=== PATIENT | male | born 1960 | race Caucasian/White ===

== ENCOUNTER → 2016-08-20 | Outpatient (CLI) | payer BC ==
--- NOTE | 2016-08-21 08:05 | XR ---
EXAMINATION TYPE: XR cervical spine comp DATE OF EXAM: 08/20/2016 4:57 PM CLINICAL HISTORY: pain COMPARISON: NONE TECHNIQUE: Frontal, lateral, oblique, swimmers, and open mouth view of the cervical spine are obtaine d. FINDINGS: The cervical spine is visualized in its entirety from C1 thru the top of T1 level. It is s atisfactory in alignment without evidence of acute fracture or dislocation. The pre-vertebral soft t issue appears within normal limits. Degenerative narrowing and spondylosis at C4-5, C5-6, and C6-7. T he C1-C2 articulation is unremarkable on the open mouth view. The oblique images are within normal l imits. IMPRESSION: No acute fracture or dislocation is seen in the cervical spine.ICD 10 NO FRACTURE, INITI AL EVALUATION
== END | disposition home or self-care (01) ==
LOC: RADXRYALE 16:27
PROVIDERS: ATTEND Family Medicine
DX: M54.2 Cervicalgia (principal); G50.0 Trigeminal neuralgia
CPT/HCPCS: 72050

== ENCOUNTER → 2018-06-18 | Outpatient (CLI) | payer BC ==
[2018-06-19 08:42] VITALS: BMI 47.2
== END | disposition home or self-care (01) ==
LOC: LABWHC1 15:01
PROVIDERS: ATTEND Family Medicine
DX: E66.01 Morbid (severe) obesity due to excess calories (principal)
CPT/HCPCS: 97804

== ENCOUNTER → 2018-07-09 | Outpatient (CLI) | payer BC ==
[2018-07-09 15:32] VITALS: BP 125/77; PULSE 68; RESP 16; TEMP 98.1; BMI 49.3
--- NOTE | 2018-07-09 16:33 | P.HPBAR ---
Bariatric H&P - History & Physicial H&P Date: 07/09/18 History & Physicial: Visit/CC: initial visit Patient initial contact: Initial weight: 147.077 kg Initial weight in pounds: 324.25 Height: 5 ft 8 in Initial BMI: 49.3 Last weight: Current weight: 147.077 kg Current weight in pounds: 324.25 Current BMI: 49.3 Jerome body weight (based on NIH guidelines): 69.853 kg Excess body weight loss: 0.0% The patient is a 57 year-old M who presents for Bariatric Assessment. Patient possessed today for a new patient evaluation in the bariatric clinic. Patient interested in sleeve gastrectomy. Patient went to a seminar 2 months ago. He is actually here with his today. They're both interested in sleeve gastrectomy. Patient has a history of hypertension, hypercholesterolemia, coronary artery disease, hyperlipidemia, chronic knee pain, GERD symptoms. No history of sleep apnea. Patient currently taking proton pump inhibitors for GERD symptoms. No history of DVT or dysphagia. Patient had a recent cardiology workup that was negative. Review of Systems The patient denies any acute changes in vision or hearing, no dysphagia or odynophagia, no chest pain or shortness of breath, no dysuria or hematuria, no headache, no runny nose, no rectal bleeding or melena, no unexplained weight loss Past Medical History Past Medical History: Coronary Artery Disease (CAD), Chest Pain / Angina, Hyperlipidemia, Hypertension, Myocardial Infarction ([place]), Osteoarthritis (OA) Additional Past Medical History / Comment(s): OA in bilateral knees. Last Myocardial Infarction Date:: 06/2009 History of Any Multi-Drug Resistant Organisms: None Reported Past Surgical History: Coronary Bypass/CABG Additional Past Surgical History / Comment(s): 2009 cardiac cath and emergent CABG X2 vessels, colonoscopy Past Anesthesia/Blood Transfusion Reactions: No Reported Reaction Past Psychological History: No Psychological Hx Reported Additional Psychological History / Comment(s): Pt resides with his spouse. He is independent. He drives. Smoking Status: Former smoker Past Alcohol Use History: Rare Additional Past Alcohol Use History / Comment(s): Former CIGAR SMOKER. Quit in 2010 Past Drug Use History: None Reported - Past Family History Father Family Medical History: Coronary Artery Disease (CAD) Additional Family Medical History / Comment(s): Father at age 78 yrs from CAD. Mother Family Medical History: Congestive Heart Failure (CHF), Coronary Artery Disease (CAD) Additional Family Medical History / Comment(s): Mother at age 70 yrs of CAD/CHF Surgical - Exam Vital Signs Temp Pulse Resp BP 98.1 F 68 16 125/77 07/09/18 15:28 07/09/18 15:28 07/09/18 15:28 07/09/18 15:28 Physical exam: General: Well-developed, well-nourished HEENT: Normocephalic, sclerae nonicteric Abdomen: Nontender, nondistended Extremities: No edema Neuro: Alert and oriented Bariatric Assessment & Plan (1) Morbid obesity Narrative/Plan: Surgical options reviewed with the patient and his in detail. Patient remains interested in sleeve gastrectomy. Patient will require preoperative upper endoscopy. Will ask for cardiac clearance as well. Patient currently has 4 months left of his supervised weight loss visits. Patient will follow up back in the clinic after upper endoscopy performed. Status: Acute Bariatric Checklist Checklist: Plan: Checklist: EGD: 1. Hiatal hernia: 2. H. Pylori: HgbA1c: Vitamin D: Smoking: Former smoker Primary care physician referral: waqar Psychiatry clearance: Cardiology clearance: Sleep study: Diet journal: VTE risk score: VTE risk level: Rehab needs at discharge:
[2018-07-09 17:23] LABS: HCT 46.6 % (39.0-53.0); HGB 15.8 gm/dL (13.0-17.5); MCH 31.2 pg (25.0-35.0); MCHC 33.9 g/dL (31.0-37.0); MCV 92.2 fL (80.0-100.0); Mean Platelet Volume 7.8; Platelet Count 133 k/uL (150-450); RBC 5.05 m/uL (4.30-5.90); RDW 13.2 % (11.5-15.5); WBC 4.5 k/uL (3.8-10.6)
[2018-07-09 22:59] LABS: Vitamin D 25 Hydroxy 35.7 ng/mL (30.0-100.0)
[2018-07-09 23:01] LABS: Albumin 4.7 g/dL (3.80-4.90); Albumin/Globulin Ratio 2.47 (1.60-3.17); Anion Gap 9.7 mmol/L (4.00-12.00); Calcium 9.9 mg/dL (8.7-10.3); Carbon Dioxide 27.3 mmol/L (21.6-31.8); Globulin 1.9 g/dL (1.6-3.3); Potassium 4.4 mmol/L (3.5-5.5); Total Bilirubin 1.3 mg/dL (0.2-1.2); Total Protein 6.6 g/dL (6.2-8.2)
[2018-07-09 23:09] LABS: Folate, Serum 20.7 ng/mL
[2018-07-10 01:41] LABS: Hemoglobin A1C 5.7 % (4.0-6.0)
== END ==
LOC: BARWHC3 14:56
PROVIDERS: ATTEND Surgery
DX: E66.01 Morbid (severe) obesity due to excess calories (principal); E89.1 Postprocedural hypoinsulinemia; D50.8 Other iron deficiency anemias; E55.9 Vitamin D deficiency, unspecified; Z68.42 Body mass index [BMI] 45.0-49.9, adult; Z87.891 Personal history of nicotine dependence
CPT/HCPCS: 80053; 82306; 82607; 82746; 83036; 84425; 85027; 93005; 99211

== ENCOUNTER → 2018-08-14 | Day surgery (SDC) | payer BC ==
[2018-08-12 10:00] VITALS: BMI 49.2
[~2018-08-14] MED LIST: LACTATED RINGERS 1,000 ML IV SCH; LIDOCAINE 1% 20 ML VIAL (10MG/ML) FOR IV START INTRADERMA ONE; PROPOFOL 10 MG/ML 20 ML VIAL IV ONE
[2018-08-14 11:31] VITALS: PULSE 57; RESP 16; TEMP 98.7
--- NOTE | 2018-08-14 12:22 | P.GSHP ---
History of Present Illness H&P Date: 08/14/18 Chief Complaint: gerd Patient here today for upper endoscopy. Patient recently seen in the bariatric center for sleep gastrectomy. Patient has complaints of mild reflux. No dysphagia. Patient takes Mobic daily. Past Medical History Past Medical History: Coronary Artery Disease (CAD), Chest Pain / Angina, Hyperlipidemia, Hypertension, Myocardial Infarction ([place]), Osteoarthritis (OA) Additional Past Medical History / Comment(s): OA in bilateral knees. Last Myocardial Infarction Date:: 06/2009 History of Any Multi-Drug Resistant Organisms: None Reported Past Surgical History: Coronary Bypass/CABG Additional Past Surgical History / Comment(s): 2009 cardiac cath and emergent CABG X2 vessels, colonoscopy Past Anesthesia/Blood Transfusion Reactions: No Reported Reaction Additional Past Anesthesia/Blood Transfusion Reaction / Comment(s): no hx blood transfusion Smoking Status: Former smoker - Past Family History Father Family Medical History: Coronary Artery Disease (CAD) Additional Family Medical History / Comment(s): Father at age 78 yrs from CAD. Mother Family Medical History: Congestive Heart Failure (CHF), Coronary Artery Disease (CAD) Additional Family Medical History / Comment(s): Mother at age 70 yrs of CAD/CHF Medications and Allergies Home Medications Medication Instructions Recorded Confirmed Type Aspirin 162 mg PO HS 03/17/14 08/14/18 History Atorvastatin [Lipitor] 40 mg PO HS 03/17/14 08/14/18 History Lisinopril [Zestril] 20 mg PO BID 03/17/14 08/14/18 History Meloxicam [Mobic] 7.5 mg PO BID 03/17/14 08/14/18 History Metoprolol Tartrate [Lopressor] 50 mg PO BID 03/17/14 08/14/18 History Multivitamin [Men's Multi-Vitamin] 1 tab PO DAILY 03/17/14 08/14/18 History Niacin [Niacin ER] 500 mg PO HS 03/17/14 08/14/18 History amLODIPine [Norvasc] 5 mg PO QAM 03/17/14 08/14/18 History Pantoprazole Sodium [Protonix] 40 mg PO AC-BRKFST 30 Days 10/24/15 08/14/18 Rx tablet. Allergies Allergy/AdvReac Type Severity Reaction Status Date / Time No Known Allergies Allergy Verified 08/12/18 09:54 Surgical - Exam Vital Signs Temp Pulse Resp BP Pulse Ox 98.7 F 57 L 16 133/65 97 08/14/18 11:29 08/14/18 11:29 08/14/18 11:29 08/14/18 11:29 08/14/18 11:29 Physical exam: General: Well-developed, well-nourished HEENT: Normocephalic, sclerae nonicteric Abdomen: Nontender, nondistended Extremities: No edema Neuro: Alert and oriented Assessment and Plan (1) GERD (gastroesophageal reflux disease) Narrative/Plan: Will proceed with upper endoscopy at this time. Current Visit: Yes Status: Acute Code(s): K21.9 - GASTRO-ESOPHAGEAL REFLUX DISEASE WITHOUT ESOPHAGITIS SNOMED Code(s): 525552090 (2) Morbid obesity Current Visit: No Status: Acute Code(s): E66.01 - MORBID (SEVERE) OBESITY DUE TO EXCESS CALORIES SNOMED Code(s): 302607191
--- NOTE | 2018-08-14 12:29 | P.PCN ---
Date of Procedure: 08/14/18 Procedure(s) Performed: Preoperative Dx: GERD, presurgical Postoperative Dx: Gastritis, hiatal hernia Procedure: EGD with Bx Anesthesia: Sedation Endoscopist: Dr. Agosto Specimens: Antrum Endoscopic Procedure: The patient was on the endoscopy table in the left decubitus position. The Olympus gastroscope was inserted into the oropharynx and passed under direct visualization to the region of the third portion of the duodenum. From that point the scope was slowly withdrawn inspecting all surfaces carefully. There were no neoplastic inflammatory or polypoid lesions throughout the duodenum. The pylorus was widely patent. The stomach was carefully inspected. There was mild gastritis present. A biopsy of the antrum took place to rule out H. pylori. Retroflexion revealed a small hiatal hernia. GE junction was present 2 cm above the diaphragmatic hiatus. The esophagus was then carefully examined. There were no neoplastic inflammatory or polypoid lesions throughout the visualized esophagus. The patient was then taken to the recovery room in stable condition per anesthesia guidelines. Recommendations: Continue as needed antiacids. Will require hiatal herniorrhaphy with sleeve gastrectomy.
[2018-08-14 12:59] VITALS: BP 117/65
== END ==
LOC: ORWHC2ENDO 11:13
PROVIDERS: ATTEND Surgery
DX: Z01.818 Encounter for other preprocedural examination (principal); K29.50 Unspecified chronic gastritis without bleeding; K44.9 Diaphragmatic hernia without obstruction or gangrene; K21.9 Gastro-esophageal reflux disease without esophagitis; E66.01 Morbid (severe) obesity due to excess calories; Z68.42 Body mass index [BMI] 45.0-49.9, adult; I25.119 Atherosclerotic heart disease of native coronary artery with unspecified angina pectoris; I10 Essential (primary) hypertension; Z87.891 Personal history of nicotine dependence; E78.5 Hyperlipidemia, unspecified; I25.2 Old myocardial infarction; M17.0 Bilateral primary osteoarthritis of knee; Z95.1 Presence of aortocoronary bypass graft; Z82.49 Family history of ischemic heart disease and other diseases of the circulatory system; Z79.1 Long term (current) use of non-steroidal anti-inflammatories (NSAID); Z79.82 Long term (current) use of aspirin; Z79.899 Other long term (current) drug therapy
CPT/HCPCS: 88305; 43239; J2704

== ENCOUNTER → 2018-11-02 | Outpatient (CLI) | payer BC ==
[2018-11-02 12:52] VITALS: BMI 51.0
== END ==
LOC: BARWHC3 08:38
PROVIDERS: ATTEND Surgery
DX: E66.01 Morbid (severe) obesity due to excess calories (principal); Z68.43 Body mass index [BMI] 50.0-59.9, adult
CPT/HCPCS: 97804

== ENCOUNTER → 2018-11-17 | Outpatient (CLI) | payer BC ==
[2018-11-17 11:37] VITALS: BP 150/92; PULSE 51; RESP 16; TEMP 98.6; BMI 51.3
--- NOTE | 2018-11-17 11:49 | P.BASOAP ---
Subjective Progress Note Date: 11/17/18 Principal diagnosis: Morbid obesity Patient returns today for surgical follow-up. Last seen in July. Had an upper endoscopy performed showing a small hiatal hernia and gastritis. Doing well otherwise. No changes to his medical history. Remains interested in sleeve gastrectomy. Objective - Vital Signs Vital signs: Vital Signs Temp 98.6 F 11/17/18 11:33 Pulse 51 L 11/17/18 11:33 Resp 16 11/17/18 11:33 BP 150/92 11/17/18 11:33 Pulse Ox Intake & Output 11/16/18 11/17/18 11/17/18 18:59 06:59 18:59 Weight 153.314 kg - Exam Abdomen: Soft, nontender, nondistended Assessment/Plan (1) Morbid obesity Narrative/Plan: The patient his and I reviewed the surgical consent form. Risks and benefits of the sleeve gastrectomy reviewed in detail. All questions answered. We'll schedule for sleeve gastrectomy in November/December. Plan: Date: 11/17/18 Initial Weight: 147.077 kg Initial BMI: 49.3 Current Weight: 153.314 kg Current BMI: 51.3 Type of Surgery: Total Volume in Band: Previous Volume: Volume Removed: Volume Added: Band Size:
== END | disposition home or self-care (01) ==
LOC: BARWHC3 10:50
PROVIDERS: ATTEND Surgery
DX: E66.01 Morbid (severe) obesity due to excess calories (principal); Z68.43 Body mass index [BMI] 50.0-59.9, adult
CPT/HCPCS: 99211

== ENCOUNTER → 2019-01-12 | Outpatient (CLI) | payer BC ==
[2019-01-12 16:00] LABS: Basophils # (A) 0.1 k/uL (0-0.2); Basophils % (A) 1 %; Eosinophils # (A) 0.1 k/uL (0-0.7); Eosinophils % (A) 2 %; HCT 48.6 % (39.0-53.0); Lymphocytes # (A) 1.1 k/uL (1.0-4.8); Lymphocytes % (A) 20 %; MCH 31.7 pg (25.0-35.0); MCHC 34.9 g/dL (31.0-37.0); MCV 90.9 fL (80.0-100.0); Mean Platelet Volume 9.1; Monocytes # (A) 0.4 k/uL (0-1.0); Monocytes % (A) 8 %; Neutrophils # (A) 3.6 k/uL (1.3-7.7); Neutrophils % (A) 66 %; Platelet Count 109 k/uL (150-450); RBC 5.35 m/uL (4.30-5.90); RDW 13.2 % (11.5-15.5); WBC 5.5 k/uL (3.8-10.6)
[2019-01-12 16:09] LABS: Albumin 5.1 g/dL (3.5-5.0); Calcium 10.2 mg/dL (8.4-10.2); Total Bilirubin 1.6 mg/dL (0.2-1.3)
== END | disposition home or self-care (01) ==
LOC: LABPAT 15:33
PROVIDERS: ATTEND Surgery
DX: Z01.812 Encounter for preprocedural laboratory examination (principal)
CPT/HCPCS: 36415; 80053; 85025

== ENCOUNTER 2019-01-18 10:01 | Inpatient (IN) | payer BC ==
--- NOTE | 2019-01-18 09:38 | P.GSHP ---
History of Present Illness H&P Date: 01/18/19 Chief Complaint: Morbid obesity Patient is a 57-year-old male first seen in June of this year for preoperative evaluation for bariatric surgery. Patient remains interested in sleeve gastrectomy. His recently underwent sleeve gastrectomy and is doing well postoperatively. Patient has a history of hypertension hypercholesterolemia coronary artery disease hyperlipidemia chronic knee pain and GERD symptoms. Denies history of DVT or dysphagia. Does take antiacids for reflux. Recent EGD shows mild gastritis and a small hiatal hernia. Past Medical History Past Medical History: Coronary Artery Disease (CAD), Chest Pain / Angina, Hyperlipidemia, Hypertension, Myocardial Infarction ([place]), Osteoarthritis (OA) Additional Past Medical History / Comment(s): OA in bilateral knees. Last Myocardial Infarction Date:: 06/2009 History of Any Multi-Drug Resistant Organisms: None Reported Past Surgical History: Coronary Bypass/CABG Additional Past Surgical History / Comment(s): 2009 cardiac cath and emergent CABG X2 vessels, colonoscopy Past Anesthesia/Blood Transfusion Reactions: No Reported Reaction Additional Past Anesthesia/Blood Transfusion Reaction / Comment(s): no hx blood transfusion Smoking Status: Former smoker - Past Family History Father Family Medical History: Coronary Artery Disease (CAD) Additional Family Medical History / Comment(s): Father at age 78 yrs from CAD. Mother Family Medical History: Congestive Heart Failure (CHF), Coronary Artery Disease (CAD), Diabetes Mellitus Additional Family Medical History / Comment(s): Mother at age 70 yrs of CAD/CHF Medications and Allergies Home Medications Medication Instructions Recorded Confirmed Type Aspirin 162 mg PO HS 03/17/14 01/12/19 History Atorvastatin [Lipitor] 40 mg PO HS 03/17/14 01/12/19 History Lisinopril [Zestril] 20 mg PO BID 03/17/14 01/12/19 History Meloxicam [Mobic] 7.5 mg PO BID 03/17/14 01/12/19 History Metoprolol Tartrate [Lopressor] 50 mg PO BID 03/17/14 01/12/19 History Multivitamin [Men's Multi-Vitamin] 1 tab PO DAILY 03/17/14 01/12/19 History Niacin [Niacin ER] 500 mg PO HS 03/17/14 01/12/19 History amLODIPine [Norvasc] 5 mg PO QAM 03/17/14 01/12/19 History Pantoprazole Sodium [Protonix] 40 mg PO AC-BRKFST 30 Days 10/24/15 01/12/19 Rx tablet. Fluticasone Nasal [place] [Flonase 2 spr EA NOSTRIL DAILY 11/02/18 01/12/19 History Nasal [place]] Loratadine [Claritin] 10 mg PO DAILY 11/02/18 01/12/19 History Magnesium Oxide [Mag-Ox] 250 mg PO QAM 11/02/18 01/12/19 History Allergies Allergy/AdvReac Type Severity Reaction Status Date / Time No Known Allergies Allergy Verified 01/12/19 13:53 Surgical - Exam Physical exam: General: Well-developed, well-nourished HEENT: Normocephalic, sclerae nonicteric Abdomen: Nontender, nondistended Extremities: No edema Neuro: Alert and oriented Assessment and Plan (1) Morbid obesity Narrative/Plan: Will proceed with sleeve gastrectomy and hiatal hernia repair at this time. The risks of bleeding, infection, stenosis, stricture, leak, abscess, fistula formation, peritonitis, poor weight loss, reflux, vomiting, conversion to an open procedure, aborting sleeve gastrectomy, HI, PE, DVT, and were discussed. The patient understands and wishes to proceed. Status: Acute Code(s): E66.01 - MORBID (SEVERE) OBESITY DUE TO EXCESS CALORIES SNOMED Code(s): 621586936
[~2019-01-18 10:01] MED LIST changes: +DEXAMETHASONE SOD PHOSPHATE 10 MG/ML 1 ML VIAL IV ONE; +ENOXAPARIN 40 MG/0.4 ML SYRINGE SQ ONE; -LACTATED RINGERS 1,000 ML IV SCH; -LIDOCAINE 1% 20 ML VIAL (10MG/ML) FOR IV START INTRADERMA ONE; +LIDOCAINE 1% 20 ML VIAL (10MG/ML) FOR IV START INTRADERMA PRN; +MIDAZOLAM 2 MG/2 ML VIAL IV PRN; -PROPOFOL 10 MG/ML 20 ML VIAL IV ONE; +ceFAZolin 3 GM in SODIUM CHLORIDE 0.9% 100 ML IVPB ONE
[2019-01-18] MEDS: LACTATED RINGERS 1,000 ML IV SCH ×3 (10:57→16:46)
[2019-01-18] MEDS ORDERED: DEXAMETHASONE SOD PHOS (MDV) 100 MG/10 ML VIAL IV ONE (11:12)
[2019-01-18] MEDS: ONDANSETRON 4 MG/2 ML VIAL IVP ONE ×2 (11:12→15:27)
[2019-01-18] MEDS ORDERED: PROPOFOL 10 MG/ML 20 ML VIAL IV ONE (12:22)
[2019-01-18] MEDS ORDERED: fentaNYL (PF) 50 MCG/ML 2 ML AMP ONE (12:22)
[2019-01-18] MEDS ORDERED: LIDOCAINE 1% INJ 10MG/ML (20 ML MDV) ONE (12:22)
[2019-01-18] MEDS ORDERED: NEOSTIGMINE 1 MG/ML 10 ML VIAL ONE (12:22)
[2019-01-18] MEDS ORDERED: SUCCINYLCHOLINE CHLORIDE VIAL 200 MG/10 ML VIAL IV ONE (12:22)
[2019-01-18] MEDS ORDERED: GLYCOPYRROLATE 0.2 MG/ML 2 ML VIAL ONE (12:22)
[2019-01-18] MEDS ORDERED: ROCURONIUM BROMIDE 10 MG/ML 10 ML VIAL IV ONE (12:22)
[2019-01-18] MEDS ORDERED: ePHEDrine SULFATE/0.9% NACL/PF 50 MG/5 ML SYRINGE IV ONE (12:22)
[2019-01-18] MEDS ORDERED: MIDAZOLAM 2 MG/2 ML VIAL ONE (12:22)
[2019-01-18] MEDS ORDERED: BUPIVACAINE (PF) 0.25% 30 ML VIAL SQ ONE ×2 (12:57)
[2019-01-18] MEDS ORDERED: LACTATED RINGERS 1,000 ML IV ONE ×2 (15:04→15:14)
[2019-01-18] MEDS ORDERED: diphenhydrAMINE 50 MG/ML 1 ML VIAL IVP PRN (15:20)
[2019-01-18] MEDS ORDERED: ACETAMINOPHEN IV (For NPO) 1,000 MG in EMPTY BAG 1 BAG IVPB ONE (15:20)
[2019-01-18] MEDS ORDERED: ONDANSETRON 4 MG/2 ML VIAL IVP PRN (15:20)
[2019-01-18] MEDS ORDERED: NALOXONE 0.4 MG/ML 1 ML VIAL IV PRN (15:20)
--- NOTE | 2019-01-18 15:26 | P.OP ---
Date of Procedure: 01/18/19 Procedure(s) Performed: PREOPERATIVE DIAGNOSIS: Morbid obesity, hypertension, GERD, hyperlipidemia, hiatal hernia POSTOPERATIVE DIAGNOSIS: Same PROCEDURE: Laparoscopic sleeve gastrectomy with repair hiatal hernia SURGEON: Surendra EBL: Minimal ANESTHESIA: General COMPLICATIONS: None OPERATIVE PROCEDURE: Patient was placed in the operating table in the supine position. He was placed under general anesthesia at that time. The abdomen was prepped and draped in sterile fashion after the patient was placed in lithotomy. A 5 mm optical trocar was used to enter the abdominal cavity in the left upper quadrant. Insufflation took place to 15 millimeters mercury. An additional right subxiphoid 5 mm trocar was then placed under direct relation and then removed. 2 additional 5 mm trochars were placed in the right upper quadrant and left upper quadrant under direct visualization and a 15 mm trocar in the s upraumbilical location. Later an additional 5 mm trocar was placed superior to our camera trocar site for better visualization of the hiatus. The liver was retracted using a medium Reinier liver retractor through the right subxiphoid trocar site. The hiatus was inspected. The patient had a small sized hiatal hernia. Circumferentially the phrenoesophageal ligament was incised identifying the actual defect. The right diaphragmatic crura was well visualized. I was able to bluntly dissect and visualize the left diaphragmatic crura. At that point I moved to the mid aspect of the greater curvature the stomach. The short gastric vasculature was divided using a LigaSure device proximally. I then switched and divided the short gastrics distally to a 3-4 cm from the pylorus. The dissection took place up to the left diaphragmatic crura at that point. The posterior short gastrics were likewise divided using the LigaSure device. Once the stomach was fully mobilized the blunt tipped 40-Spanish bougie dilator was advanced into the stomach and advanced all the way to the prepyloric location. A black echelon 60 stapler without seam guard was utilized and fired tangentially across the antrum taking care to avoid narrowing at the incisura angularis. Our second firing of the staple was a black 60 with seam guard. Subsequent green load firings of the stapler with seam guard took place staying on the outer edge of our dilator. The oral gastric tube was reinserted. The stomach was insufflated with approximately 100 mL of methylene blue. No evidence of leak or obstruction was seen. The hiatus was then addressed once again. A single 2-0 Ethibond suture was used to reapproximate the crura posteriorly. This adequately closed the diaphragmatic hernia. The distal aspect of the sleeve was then reapproximated to the gastrosplenic and gastrocolic ligament using a short running 20 strata fix suture. This was done to prevent kinking or twisting of the sleeve. Tisseel fibrin glue was then sprayed along the entire length of the staple line. No bleeding was identified. The stomach remnant was removed from the 15 mm trocar site without difficulty. The fascia at the 15 more site was closed using interrupted 0 Vicryl sutures with the laparoscopic suture passer and Ranjeet Leslie technique. The insufflation was evacuated. The skin at all 6 incisions were closed using 4-0 Monocryl sutures. Skin glue was then applied. DISPOSITION: Stable to recovery room
[2019-01-18] MEDS: fentaNYL (PF) 50 MCG/ML 2 ML AMP IV PRN ×2 (15:27→15:30)
[2019-01-18] MEDS ORDERED: HYDROmorphone 1 MG/ML 1 ML SYRINGE IVP ONE ×2 (16:09→16:21)
[2019-01-18] MEDS: 0.9% NACL WITH KCL 20 MEQ/L 1,000 ML IV SCH ×3 (17:12→22:10)
[2019-01-18] MEDS: SIMETHICONE 40 MG/0.6 ML DROPS 2,000 MG/30 ML BOTTLE PO PRN ×2 (17:38→23:41)
[2019-01-18] MEDS: HYOSCYAMINE ORAL DROPS 1.875 MG/15 ML BOTTLE PO PRN ×2 (17:45→23:41)
[2019-01-18] MEDS: ALBUTEROL NEBULIZED 2.5 MG/3 ML INHALATION SCH ×2 (17:55→19:22)
[2019-01-18] MEDS: METOPROLOL TARTRATE 50 MG TAB PO SCH (20:55)
[2019-01-18] MEDS: ATORVASTATIN 40 MG TAB PO SCH (20:55)
[2019-01-18] MEDS: LISINOPRIL 20 MG TAB PO SCH (20:56)
[2019-01-18] MEDS ORDERED: ceFAZolin 3 GM in SODIUM CHLORIDE 0.9% 100 ML IVPB ONE (21:00)
--- NOTE | 2019-01-18 23:29 | P.CONS ---
History of Present Illness - Reason for Consult Consult date: 01/18/19 Medical management - Chief Complaint Laparoscopic sleeve gastrectomy with repair hiatal hernia - History of Present Illness Patient is a 58-year-old male with a known history of coronary artery disease and emergent CABG 2 vessel, GERD, hypertension, hyperlipidemia, history of [place] and osteoarthritis of bilateral knees was admitted to the hospital for elective sleeve gastrectomy surgery. Patient is sugars post Laparoscopic sleeve gastrectomy with repair hiatal hernia. Currently patient is able to ambulate with support. Complains of upper abdominal fullness and squeezing like sensation. No nausea no vomiting. No fever no chills. No chest pain or shortness of breath. Headache or dizziness or lightheadedness. Review of Systems Constitutional: Patient denies any fever or chills . No generalized weakness or weight loss. Abdomen: Patient denied nausea vomiting and diarrhea and abdominal pain. Cardiovascular: Patient denies any chest pain or short of breath no palpitations. Respiratory: patient denied any cough is from production. No shortness of breath Neurologic: Patient denied any numbness or tingling headache. Musculoskeletal: Patient denies any complaints of joint swelling or deformity. Skin: Negative Psychiatric: Negative Endocrine: No heat or cold intolerance. No recent weight gain. Genitourinary: No dysuria or hematuria. All other 14 point ROS negative except the above Past Medical History Past Medical History: Coronary Artery Disease (CAD), Chest Pain / Angina, Hyp erlipidemia, Hypertension, Myocardial Infarction ([place]), Osteoarthritis (OA) Additional Past Medical History / Comment(s): OA in bilateral knees. Last Myocardial Infarction Date:: 06/2009 History of Any Multi-Drug Resistant Organisms: None Reported Past Surgical History: Coronary Bypass/CABG Additional Past Surgical History / Comment(s): 2010 cardiac cath and emergent CABG X2 vessels, colonoscopy Past Anesthesia/Blood Transfusion Reactions: No Reported Reaction Additional Past Anesthesia/Blood Transfusion Reaction / Comm: no hx blood transfusion Past Psychological History: No Psychological Hx Reported Additional Psychological History / Comment(s): Pt resides with his spouse. He is independent. He drives. Smoking Status: Former smoker Past Alcohol Use History: Rare Additional Past Alcohol Use History / Comment(s): Former CIGAR SMOKER. Quit in 2010 Past Drug Use History: None Reported - Past Family History Father Family Medical History: Coronary Artery Disease (CAD) Additional Family Medical History / Comment(s): Father at age 78 yrs from CAD. Mother Family Medical History: Congestive Heart Failure (CHF), Coronary Artery Disease (CAD), Diabetes Mellitus Additional Family Medical History / Comment(s): Mother at age 70 yrs of CAD/CHF Medications and Allergies Home Medications Medication Instructions Recorded Confirmed Type Aspirin 162 mg PO HS 03/17/14 01/12/19 History Atorvastatin [Lipitor] 40 mg PO HS 03/17/14 01/12/19 History Lisinopril [Zestril] 20 mg PO BID 03/17/14 01/12/19 History Meloxicam [Mobic] 7.5 mg PO BID 03/17/14 01/12/19 History Metoprolol Tartrate [Lopressor] 50 mg PO BID 03/17/14 01/12/19 History Multivitamin [Men's Multi-Vitamin] 1 tab PO DAILY 03/17/14 01/12/19 History Niacin [Niacin ER] 500 mg PO HS 03/17/14 01/12/19 History amLODIPine [Norvasc] 5 mg PO QAM 03/17/14 01/12/19 History Pantoprazole Sodium [Protonix] 40 mg PO AC-BRKFST 30 Days 10/24/15 01/18/19 Rx tablet. Fluticasone Nasal [place] [Flonase 2 spr EA NOSTRIL DAILY 11/02/18 01/18/19 History Nasal [place]] Loratadine [Claritin] 10 mg PO DAILY 11/02/18 01/18/19 History Magnesium Oxide [Mag-Ox] 250 mg PO QAM 11/02/18 01/12/19 History Allergies Allergy/AdvReac Type Severity Reaction Status Date / Time No Known Allergies Allergy Verified 01/18/19 10:53 Physical Exam Vitals: Vital Signs Temp Pulse Resp BP BP Pulse Ox 01/18/19 16:15 62 16 131/61 97 01/18/19 16:02 60 16 120/59 97 01/18/19 15:47 62 16 120/58 97 01/18/19 15:30 66 16 118/58 98 01/18/19 15:17 98.7 F 81 21 136/65 97 01/18/19 10:53 97 F L 60 18 121/56 97 Intake and Output 01/18/19 01/18/19 01/18/19 06:59 14:59 22:59 Intake Total 1100 1200 Output Total 15 Balance 1085 1200 Intake: IV 1100 1200 Output: Estimated Blood Loss 15 PHYSICAL EXAMINATION: Patient is lying in the bed comfortably, no acute distress, awake alert and oriented.. HEENT: Normocephalic. Neck is supple. Pupils reactive. Nostrils clear. Oral cavity is moist. Ears reveal no drainage. Neck reveals no JVD, carotid bruits, or thyromegaly. CHEST EXAMINATION: Trachea is central. Symmetrical expansion. Bibasilar air entry. Lung christine clear to auscultation and percussion. CARDIAC: Normal S1, S2 with no gallops. No murmurs ABDOMEN: Soft. Bowel sounds diminished. No organomegaly. No abdominal bruits. Extremities: reveal no edema. No clubbing or cyanosis Neurologically awake, alert, oriented x3 with well-coordinated movements. No focal deficits noted Skin: No rash or skin lesions. Psychiatric: Coperative. Nonsuicidal Musculoskeletal: No joint swelling or deformity. Normal range of motion. Assessment and Plan Assessment: Status post sleeve gastrectomy and hiatal hernia repair. Postoperative day 0 GERD Hypertension Hyperlipidemia History of [place] Coronary artery disease with history of emergent CABG 2 vessel Previous history of smoking Morbid obesity with BMI 46.8 DVT prophylaxis \ Plan: Patient will be continued on IV hydration. Pain management and bowel regimen. Continue with home blood pressure medications and titrate as needed. DVT prophylaxis as per primary team. Further recommendations based on the clinical course. We will continue to follow with you. CBC and BMP tomorrow. Thank you for your consult. Time with Patient: Greater than 30
[2019-01-19] MEDS: ENOXAPARIN 40 MG/0.4 ML SYRINGE SQ SCH ×2 (04:10→16:30)
[2019-01-19] MEDS: HYDROmorphone 1 MG/ML 1 ML SYRINGE IVP PRN ×3 (04:10→12:06)
[2019-01-19] MEDS: SIMETHICONE 40 MG/0.6 ML DROPS 2,000 MG/30 ML BOTTLE PO PRN (05:55)
[2019-01-19] MEDS: HYOSCYAMINE ORAL DROPS 1.875 MG/15 ML BOTTLE PO PRN (05:55)
[2019-01-19] MEDS: 0.9% NACL WITH KCL 20 MEQ/L 1,000 ML IV SCH (06:02)
[2019-01-19] MEDS: PANTOPRAZOLE 40 MG/10 ML VIAL IV SCH (07:05)
[2019-01-19 07:41] LABS: African American GFR (CKD) >90 (>60 ml/min/1.73 sqM); Anion Gap 9 mmol/L; Blood Urea Nitrogen 17 mg/dL (9-20); Calcium 8.8 mg/dL (8.4-10.2); Carbon Dioxide 22 mmol/L (22-30); Chloride 108 mmol/L (98-107); Magnesium 1.9 mg/dL (1.6-2.3); Phosphorus 3.3 mg/dL (2.5-4.5); Potassium 4.8 mmol/L (3.5-5.1); Sodium 139 mmol/L (137-145)
[2019-01-19 08:25] LABS: Basophils % (A) 0 %; Eosinophils % (A) 1 %; HCT 41.5 % (39.0-53.0); HGB 14.4 gm/dL (13.0-17.5); Lymphocytes # (A) 0.7 k/uL (1.0-4.8); Lymphocytes % (A) 11 %; MCH 31.3 pg (25.0-35.0); MCHC 34.7 g/dL (31.0-37.0); MCV 90.3 fL (80.0-100.0); Mean Platelet Volume 10.5; Monocytes # (A) 0.3 k/uL (0-1.0); Monocytes % (A) 5 %; Neutrophils # (A) 5.1 k/uL (1.3-7.7); Neutrophils % (A) 82 %; RBC 4.59 m/uL (4.30-5.90); RDW 15.7 % (11.5-15.5); WBC 6.1 k/uL (3.8-10.6)
[2019-01-19] MEDS: LACTATED RINGERS 1,000 ML IV SCH (08:45)
[2019-01-19 08:55] LABS: Large Platelets Present; Platelet Count 68 k/uL (150-450)
[2019-01-19] MEDS: ALBUTEROL NEBULIZED 2.5 MG/3 ML INHALATION SCH ×4 (08:56→20:10)
[2019-01-19] MEDS: 1: MVI, ADULT NO.4 WITH VIT K 10 ML, THIAMINE 100 MG, FOLIC ACID 1 MG, POTASSIUM CHLORID IV SCH ×12 (09:21→16:10)
[2019-01-19 10:47] VITALS: BMI 46.8
[2019-01-19] MEDS: METOPROLOL TARTRATE 50 MG TAB PO SCH ×2 (12:02→21:31)
[2019-01-19] MEDS: amLODIPine 5 MG TAB PO SCH (12:02)
[2019-01-19] MEDS: LISINOPRIL 20 MG TAB PO SCH ×2 (12:03→21:31)
--- NOTE | 2019-01-19 12:03 | FL ---
SINGLE CONTRAST UPPER GI EXAMINATION: CLINICAL HISTORY: 58-year-old male postop bariatric surgery, gastric sleeve and hiatal hernia repair TECHNIQUE: Single contrast exam performed with 50 ml [id number] contrast. Total fluoroscopy time: 1 minute 5 seconds Total images: 29. FINDINGS: The patient swallowed oral contrast without difficulty or delay. Esophageal peristalsis shows mild t ertiary peristaltic waves. After an initial slight delay, there is subsequent prompt passage of contr ast from the esophagus to the stomach. Postsurgical changes of hiatal hernia repair. There is satisfa ctory passage of contrast along the gastric sleeve and then into the duodenum. There is no evidence o f contrast extravasation to suggest leak. Trace postsurgical free air below the right hemidiaphragm. IMPRESSION: No evidence of leak or significant obstruction status post hiatal hernia repair and sleeve gastrectom y. Trace postsurgical free air on the right.
[2019-01-19] MEDS ORDERED: HYDROcodone/APAP 5-325MG 1 EACH TAB PO PRN (14:19)
--- NOTE | 2019-01-19 14:21 | P.PN ---
<AngelJosefina Berenice - Last Filed: 01/19/19 14:21> Subjective Progress Note Date: 01/19/19 CHIEF COMPLAINT: Morbid obesity HISTORY OF PRESENT ILLNESS: 58-year-old male who is status post laparoscopic sleeve gastrectomy and repair of hiatal hernia. POD #1. Patient examined this morning at the bedside. He has been tolerating ice chips. Esophagram negative for leak or obstruction. He denies nausea. Pain is controlled on current regimen. Vital signs stable. He is afebrile. PHYSICAL EXAM: VITAL SIGNS: Reviewed. GENERAL: Well-developed in no acute distress. HEENT: No sclera icterus. Extraocular movements grossly intact. Moist buccal mucosa. Head is atraumatic, normocephalic. ABDOMEN: Soft. Nondistended. Appropriate surgical tenderness. Laparoscopic surgical sites clean dry and intact without drainage or signs of infection NEUROLOGIC: Alert and oriented. Cranial nerves II through XII grossly intact. ASSESSMENT: 1. Morbid obesity, status post laparoscopic sleeve gastrectomy and repair of hiatal hernia PLAN: 1. Begin bariatric clear liquid diet. No straws or carbonated beverages. 2. Activity as tolerated 3. Incentive spirometry 4. Pain control. Will add [place] PRN 5. Anticipate discharge home tomorrow if patient tolerating clear liquids Nurse practitioner note has been reviewed by physician. Signing provider agrees with the documented findings, assessment, and plan of care. Objective - Vital Signs Vital signs: Vital Signs Temp 97.8 F 01/19/19 13:21 Pulse 47 L 01/19/19 13:21 Resp 18 01/19/19 07:09 BP 126/66 01/19/19 13:21 Pulse Ox 94 L 01/19/19 13:21 Intake & Output 01/18/19 01/19/19 01/19/19 18:59 06:59 18:59 Intake Total 2300 1600 Output Total 15 200 Balance 2285 1400 Weight 139.706 kg Intake: IV 2300 Intake, IV Titration 1600 Amount 0.9% NaCl with KCl 20 Meq 1500 /l 1,000 ml @ 150 mls/hr IV .Q6H40M [facility] Rx#: [id number] ceFAZolin 3 gm In Sodium 100 Chloride 0.9% 100 ml @ 200 mls/hr IVPB ONCE ONE Rx#:[id number] Output: Urine 200 Estimated Blood Loss 15 Other: Voiding Method Toilet # Voids 1 1 - Labs CBC & Chem 7: 01/19/19 06:48 01/19/19 06:48 Labs: Abnormal Lab Results - Last 24 Hours (Table) 01/19/19 01/19/19 Range/Units 06:48 06:48 RDW 15.7 H (11.5-15.5) % Plt Count 68 L (150-450) k/uL Lymphocytes # 0.7 L (1.0-4.8) k/uL Chloride 108 H (98-107) mmol/L <Phong Agosto - Last Filed: 01/19/19 17:16> Subjective As above. Patient having mild epigastric pain. Upper GI looks good. Encourage oral intake. Probable discharge tomorrow. Add Toradol for pain control. Objective - Vital Signs Vital signs: Vital Signs Temp 97.8 F 01/19/19 13:21 Pulse 65 01/19/19 16:20 Resp 18 01/19/19 07:09 BP 126/66 01/19/19 13:21 Pulse Ox 94 L 01/19/19 13:21 Intake & Output 01/18/19 01/19/19 01/19/19 18:59 06:59 18:59 Intake Total 2300 1600 Output Total 15 200 Balance 2285 1400 Weight 139.706 kg Intake: IV 2300 Intake, IV Titration 1600 Amount 0.9% NaCl with KCl 20 Meq 1500 /l 1,000 ml @ 150 mls/hr IV .Q6H40M [facility] Rx#: [id number] ceFAZolin 3 gm In Sodium 100 Chloride 0.9% 100 ml @ 200 mls/hr IVPB ONCE ONE Rx#:[id number] Output: Urine 200 Estimated Blood Loss 15 Other: Voiding Method Toilet # Voids 1 1 - Labs CBC & Chem 7: 01/19/19 06:48 01/19/19 06:48 Labs: Abnormal Lab Results - Last 24 Hours (Table) 01/19/19 01/19/19 Range/Units 06:48 06:48 RDW 15.7 H (11.5-15.5) % Plt Count 68 L (150-450) k/uL Lymphocytes # 0.7 L (1.0-4.8) k/uL Chloride 108 H (98-107) mmol/L Assessment and Plan (1) Morbid obesity Current Visit: Yes Status: Acute Code(s): E66.01 - MORBID (SEVERE) OBESITY DUE TO EXCESS CALORIES SNOMED Code(s): 687219683
[2019-01-19] MEDS: KETOROLAC 30 MG/ML 1 ML VIAL IVP SCH ×2 (17:28→23:07)
[2019-01-19] MEDS: ATORVASTATIN 40 MG TAB PO SCH (21:31)
--- NOTE | 2019-01-19 23:28 | P.PN ---
Subjective Progress Note Date: 01/19/19 Principal diagnosis: Status post elective sleeve gastrectomy and hiatal hernia repair. Patient is a 58-year-old male with a known history of coronary artery disease and emergent CABG 2 vessel, GERD, hypertension, hyperlipidemia, history of HI and osteoarthritis of bilateral knees was admitted to the hospital for elective sleeve gastrectomy surgery. Patient is sugars post Laparoscopic sleeve gastrectomy with repair hiatal hernia. Currently patient is able to ambulate with support. Complains of upper abdominal fullness and squeezing like sensation. No nausea no vomiting. No fever no chills. No chest pain or shortness of breath. Headache or dizziness or lightheadedness. 01 19 2019 Patient denied any complaints of chest pain or shortness of breath. Upper abdominal discomfort is improved compared to yesterday. Patient is tolerating ice chips. No bowel movement so far. No Fever chills. No nausea vomiting or abdominal pain or diarrhea. Patient is able to ambulate in the hallway. No other acute overnight issues. Laboratory data reviewed. Platelet count 68,000. Current medications reviewed. Objective - Vital Signs Vital signs: Vital Signs Temp 97.6 F 01/19/19 19:00 Pulse 70 01/19/19 20:23 Resp 16 01/19/19 19:00 BP 135/64 01/19/19 19:00 Pulse Ox 94 L 01/19/19 13:21 Intake & Output 01/19/19 01/19/19 01/20/19 06:59 18:59 06:59 Intake Total 1600 Output Total 200 Balance 1400 Weight 139.706 kg Intake: Intake, IV Titration 1600 Amount 0.9% NaCl with KCl 20 Meq 1500 /l 1,000 ml @ 150 mls/hr IV .Q6H40M [facility] Rx#: [id number] ceFAZolin 3 gm In Sodium 100 Chloride 0.9% 100 ml @ 200 mls/hr IVPB ONCE ONE Rx#:[id number] Output: Urine 200 Other: Voiding Method Toilet # Voids 1 1 - Exam PHYSICAL EXAMINATION: Patient is lying in the bed comfortably, no acute distress, awake alert and oriented.. HEENT: Normocephalic. Neck is supple. Pupils reactive. Nostrils clear. Oral cavity is moist. Ears reveal no drainage. Neck reveals no JVD, carotid bruits, or thyromegaly. CHEST EXAMINATION: Trachea is central. Symmetrical expansion. Bibasilar air entry. Lung christine clear to auscultation and percussion. CARDIAC: Normal S1, S2 with no gallops. No murmurs ABDOMEN: Soft. Bowel sounds diminished. No organomegaly. No abdominal bruits. Extremities: reveal no edema. No clubbing or cyanosis Neurologically awake, alert, oriented x3 with well-coordinated movements. No focal deficits noted Skin: No rash or skin lesions. Psychiatric: Coperative. Nonsuicidal Musculoskeletal: No joint swelling or deformity. Normal range of motion. - Labs CBC & Chem 7: 01/19/19 06:48 01/19/19 06:48 Labs: Abnormal Lab Results - Last 24 Hours (Table) 01/19/19 01/19/19 Range/Units 06:48 06:48 RDW 15.7 H (11.5-15.5) % Plt Count 68 L (150-450) k/uL Lymphocytes # 0.7 L (1.0-4.8) k/uL Chloride 108 H (98-107) mmol/L Assessment and Plan Assessment: Status post sleeve gastrectomy and hiatal hernia repair. Postoperative day 1 Thrombocytopenia. Etiology unknown. GERD Hypertension Hyperlipidemia History of HI Coronary artery disease with history of emergent CABG 2 vessel Previous history of smoking Morbid obesity with BMI 46.8 DVT prophylaxis \ Plan: Patient will be continued on IV hydration. Pain management and bowel regimen. Continue with home blood pressure medications and titrate as needed. DVT prophylaxis as per primary team. Further recommendations based on the clinical course. We will continue to follow with you. CBC and BMP tomorrow. Thank you for your consult. Time with Patient: Greater than 30
[2019-01-20] MEDS: KETOROLAC 30 MG/ML 1 ML VIAL IVP SCH (05:45)
[2019-01-20] MEDS: ENOXAPARIN 40 MG/0.4 ML SYRINGE SQ SCH (05:45)
[2019-01-20] MEDS: 1: MVI, ADULT NO.4 WITH VIT K 10 ML, THIAMINE 100 MG, FOLIC ACID 1 MG, POTASSIUM CHLORID IV SCH ×6 (06:18)
[2019-01-20 07:41] LABS: Basophils % (A) 0 %; Eosinophils # (A) 0.1 k/uL (0-0.7); Eosinophils % (A) 2 %; HCT 40.6 % (39.0-53.0); Lymphocytes # (A) 0.8 k/uL (1.0-4.8); Lymphocytes % (A) 16 %; MCH 31.7 pg (25.0-35.0); MCHC 34.6 g/dL (31.0-37.0); MCV 91.4 fL (80.0-100.0); Monocytes # (A) 0.3 k/uL (0-1.0); Monocytes % (A) 6 %; Neutrophils % (A) 76 %; RBC 4.44 m/uL (4.30-5.90); RDW 15.5 % (11.5-15.5); WBC 5.2 k/uL (3.8-10.6)
[2019-01-20 07:46] LABS: ALT 43 U/L (21-72); AST 29 U/L (17-59); African American GFR (CKD) >90 (>60 ml/min/1.73 sqM); Albumin 3.6 g/dL (3.5-5.0); Alkaline Phosphatase 69 U/L (38-126); Anion Gap 6 mmol/L; Bilirubin, Delta 0.2 mg/dL (0.0-0.2); Bilirubin,Unconjugated 0.8 mg/dL (0.0-1.1); Blood Urea Nitrogen 14 mg/dL (9-20); Calcium 8.7 mg/dL (8.4-10.2); Carbon Dioxide 27 mmol/L (22-30); Chloride 107 mmol/L (98-107); Glucose 94 mg/dL (74-99); Sodium 140 mmol/L (137-145); Total Protein 5.9 g/dL (6.3-8.2)
[2019-01-20 07:49] LABS: Platelet Count 65 k/uL (150-450)
[2019-01-20] MEDS: PANTOPRAZOLE 40 MG/10 ML VIAL IV SCH (08:11)
[2019-01-20] MEDS: LISINOPRIL 20 MG TAB PO SCH (08:11)
[2019-01-20] MEDS: METOPROLOL TARTRATE 50 MG TAB PO SCH (08:11)
[2019-01-20] MEDS: amLODIPine 5 MG TAB PO SCH (08:11)
[2019-01-20 08:40] VITALS: BP 125/65; RESP 16; TEMP 98.4
[2019-01-20] MEDS: ALBUTEROL NEBULIZED 2.5 MG/3 ML INHALATION SCH ×2 (08:59→12:36)
[2019-01-20 09:03] VITALS: PULSE 70
--- NOTE | 2019-01-20 10:32 | P.DS ---
<Josefina Ortiz - Last Filed: 01/20/19 10:26> Providers Expected date of discharge: 01/20/19 Hospital Course: 58-year-old male who is status post laparoscopic sleeve gastrectomy and repair of hiatal hernia. Esophagram negative for leak or obstruction. Patient is tolerating clear liquid diet and consuming adequate amount of fluids. Denies nausea or vomiting. Vital signs have been stable. He is stable for discharge home today. Please see EMR for further hospital course details. Patient did not want any pain medications prescribed at discharge. Patient instructed he may take Tylenol if needed. Omeprazole sent to patients pharmacy. He did not want any of the other bariatric medications prescribed. Dr. Agosto aware and ok with omeprazole only being prescribed. Discharge Diagnosis: 1. Morbid obesity, status post laparoscopic sleeve gastrectomy and repair of hiatal hernia Nurse practitioner note has been reviewed by physician. Signing provider agrees with the documented findings, assessment, and plan of care. Plan - Discharge Summary Discharge Rx Participant: No New Discharge Prescriptions: New Omeprazole 40 mg PO DAILY #30 cap Continue amLODIPine [Norvasc] 5 mg PO QAM Niacin [Niacin ER] 500 mg PO HS Multivitamin [Men's Multi-Vitamin] 1 tab PO DAILY Metoprolol Tartrate [Lopressor] 50 mg PO BID Meloxicam [Mobic] 7.5 mg PO BID Lisinopril [Zestril] 20 mg PO BID Atorvastatin [Lipitor] 40 mg PO HS Magnesium Oxide [Mag-Ox] 250 mg PO QAM Fluticasone Nasal [place] [Flonase Nasal [place]] 2 spr EA NOSTRIL DAILY Loratadine [Claritin] 10 mg PO DAILY Discontinued Aspirin 162 mg PO HS No Action Pantoprazole Sodium [Protonix] 40 mg PO AC-BRKFST 30 Days tablet.dr Discharge Medication List Atorvastatin [Lipitor] 40 mg PO HS 03/17/14 [History] Lisinopril [Zestril] 20 mg PO BID 03/17/14 [History] Meloxicam [Mobic] 7.5 mg PO BID 03/17/14 [History] Metoprolol Tartrate [Lopressor] 50 mg PO BID 03/17/14 [History] Multivitamin [Men's Multi-Vitamin] 1 tab PO DAILY 03/17/14 [History] Niacin [Niacin ER] 500 mg PO HS 03/17/14 [History] amLODIPine [Norvasc] 5 mg PO QAM 03/17/14 [History] Pantoprazole Sodium [Protonix] 40 mg PO AC-BRKFST 30 Days tablet. 10/24/15 [Rx] Fluticasone Nasal [place] [Flonase Nasal [place]] 2 spr EA NOSTRIL DAILY 11/02/18 [History] Loratadine [Claritin] 10 mg PO DAILY 11/02/18 [History] Magnesium Oxide [Mag-Ox] 250 mg PO QAM 11/02/18 [History] Omeprazole 40 mg PO DAILY #30 cap 01/20/19 [Rx] Follow up Appointment(s)/Referral(s): [facility] [place], [place] [NON-STAFF] - 02/02/19 2:00 pm Activity/Diet/Wound Care/Special Instructions: You may take Tylenol if needed for pain. Patient does not want narcotics at discharge Omeprazole sent to [facility]. Patient has all other bariatric prescriptions at home as his recently underwent same surgery and did not use any of the medications and would prefer not to have those prescriptions sent to the pharmacy. Patient may call Dr. Agosto if he changes his mind. Continue clear liquid diet per bariatric instructions You may shower. No soaking or tub bath. Limited activity until you are evaluated at your follow up appointment No lifting over 10 pounds <Phong Agosto - Last Filed: 01/20/19 11:37> Providers Date of admission: 01/18/19 10:01 Attending physician: Phong Agosto Consults: 01/18/19 15:22 Consult Physician Routine Consulting Provider: Felicia Yarbrough Consult Reason/Comments: Medical management Do you want consulting provider notified?: Yes Primary care physician: Deangelo Xiong - Discharge Diagnosis(es) (1) Morbid obesity Current Visit: Yes Status: Acute Hospital Course: As above. Patient doing well. Plan discharge today.
[2019-01-20 12:15] LABS: Hepatitis A Antibody IgM Non-Reactive (Non-Reactive); Hepatitis B Core IgM Non-Reactive (Non-Reactive); Hepatitis B Surface Antigen Non-Reactive (Non-Reactive); Hepatitis C IgG Antibody Non-Reactive (Non-Reactive)
== END 2019-01-20 13:22 | disposition home or self-care (01) | DRG 621 ==
LOC: 2ORMAIN 10:01 → EDSTATUS 12:00 → 4SSUR 16:30 → 4MS4W 01-19 23:09 → 4SSUR 01-19 23:09
PROVIDERS: ADMIT Surgery; ATTEND Surgery
PROC: 0BQT4ZZ Repair Diaphragm, Percutaneous Endoscopic Approach (ICD-10-PCS; 2019-01-18)
PROC: 0DB64Z3 Excision of Stomach, Percutaneous Endoscopic Approach, Vertical (ICD-10-PCS; principal; 2019-01-18 11:30)
DX: E66.01 Morbid (severe) obesity due to excess calories (principal); Z68.42 Body mass index [BMI] 45.0-49.9, adult; D69.6 Thrombocytopenia, unspecified; E78.00 Pure hypercholesterolemia, unspecified; E78.2 Mixed hyperlipidemia; I10 Essential (primary) hypertension; I25.10 Atherosclerotic heart disease of native coronary artery without angina pectoris; I25.2 Old myocardial infarction; K21.9 Gastro-esophageal reflux disease without esophagitis; K44.9 Diaphragmatic hernia without obstruction or gangrene; M17.0 Bilateral primary osteoarthritis of knee; G89.29 Other chronic pain; K29.70 Gastritis, unspecified, without bleeding; Z79.1 Long term (current) use of non-steroidal anti-inflammatories (NSAID); Z79.82 Long term (current) use of aspirin; Z79.899 Other long term (current) drug therapy; Z87.891 Personal history of nicotine dependence; Z95.1 Presence of aortocoronary bypass graft; Z82.49 Family history of ischemic heart disease and other diseases of the circulatory system; Z83.3 Family history of diabetes mellitus
CPT/HCPCS: 74240; 80048; 80051; 80074; 80076; 82310; 82565; 83735; 84100; 84520; 85025; 88307; 94640; 94760; 94762

== ENCOUNTER → 2019-01-25 | Outpatient (CLI) | payer BC ==
[2019-01-25 15:25] VITALS: BMI 44.4
[2019-01-25 15:40] VITALS: BP 122/79; PULSE 75; TEMP 98.8
== END | disposition home or self-care (01) ==
LOC: BARWHC3 14:30
PROVIDERS: ATTEND Surgery
DX: E66.01 Morbid (severe) obesity due to excess calories (principal)
CPT/HCPCS: 97803; 99211

== ENCOUNTER → 2019-02-02 | Outpatient (CLI) | payer BC ==
[2019-02-02 15:07] VITALS: BP 104/67; PULSE 67; RESP 16; TEMP 97.6; BMI 43.7
--- NOTE | 2019-02-02 22:16 | P.BASOAP ---
Subjective Progress Note Date: 02/02/19 Principal diagnosis: Morbid obesity Patient returns after elective sleeve gastrectomy 1-2 weeks ago. Doing well at this time. Good weight loss. Excellent protein and liquid intake. No nausea or vomiting. No reflux. Objective - Vital Signs Vital signs: Vital Signs Temp 97.6 F 02/02/19 15:02 Pulse 67 02/02/19 15:02 Resp 16 02/02/19 15:02 BP 104/67 02/02/19 15:02 Pulse Ox Intake & Output 02/02/19 02/02/19 02/03/19 06:59 18:59 06:59 Weight 130.635 kg - Exam Abdomen: Soft, nondistended, incision clean and dry Assessment/Plan (1) Morbid obesity Narrative/Plan: Patient doing well at this time. Continue dietary and exercise regimen. Check one month labs later this month. Follow-up one month. Plan: Date: 02/02/19 Initial Weight: 147.077 kg Initial BMI: 49.3 Current Weight: 130.635 kg Current BMI: 43.7 Type of Surgery: Vertical Sleeve Gastrectomy Total Volume in Band: Previous Volume: Volume Removed: Volume Added: Band Size:
== END | disposition home or self-care (01) ==
LOC: BARWHC3 14:53
PROVIDERS: ATTEND Surgery
DX: Z48.815 Encounter for surgical aftercare following surgery on the digestive system (principal); E66.01 Morbid (severe) obesity due to excess calories; Z68.41 Body mass index [BMI] 40.0-44.9, adult
CPT/HCPCS: 99211

== ENCOUNTER → 2019-03-03 | Outpatient (CLI) | payer BC ==
[2019-03-03 19:00] LABS: HCT 41.6 % (39.0-53.0); MCH 31.8 pg (25.0-35.0); MCHC 33.7 g/dL (31.0-37.0); MCV 94.4 fL (80.0-100.0); RBC 4.41 m/uL (4.30-5.90); WBC 2.7 k/uL (3.8-10.6)
[2019-03-03 19:01] LABS: Mean Platelet Volume 9.4; Platelet Count 102 k/uL (150-450)
[2019-03-04 00:46] LABS: African American GFR (CKD) 109.5 (60.0-200.0); Albumin 4.6 g/dL (3.80-4.90); Albumin/Globulin Ratio 2.88 (1.60-3.17); Anion Gap 10.7 mmol/L (4.00-12.00); BUN/Creat Ratio 25.56 Ratio (12.00-20.00); Carbon Dioxide 26.3 mmol/L (21.6-31.8); Globulin 1.6 g/dL (1.6-3.3); Potassium 4.7 mmol/L (3.5-5.5); Total Bilirubin 1.1 mg/dL (0.2-1.2); Total Protein 6.2 g/dL (6.2-8.2)
[2019-03-04 01:41] LABS: Folate, Serum 17.6 ng/mL
== END | disposition home or self-care (01) ==
LOC: LABWHC1 16:23
PROVIDERS: ATTEND Surgery
DX: E66.01 Morbid (severe) obesity due to excess calories (principal); K90.89 Other intestinal malabsorption; E55.9 Vitamin D deficiency, unspecified
CPT/HCPCS: 36415; 80053; 82306; 82607; 82746; 83540; 84425; 85027

== ENCOUNTER → 2019-03-16 | Outpatient (CLI) | payer BC ==
--- NOTE | 2019-03-16 16:52 | P.BASOAP ---
Subjective Progress Note Date: 03/16/19 Principal diagnosis: Morbid obesity Patient returns today for recheck. Patient underwent sleeve gastrectomy 02/02. He has had approximately 25 pounds weight loss since his last visit. No reflux. No pain. Still taking antacids daily. Recently his labs showed a persistent thrombocytopenia and some leukopenia. Has an appointment with Dr. Stephen in the near future. He just started increasing his iron intake after recent labs showed an iron of 39. He has decreased his antihypertensive medications. Denies pain. Objective - Exam Abdomen: Soft, nontender, nondistended Assessment/Plan (1) Morbid obesity Narrative/Plan: Patient doing well at this time. Continue dietary and exercise regimen. Increase oral iron intake. Await oncology evaluation for leukopenia. We'll plan follow-up in 1 month. We'll check three-month labs at that time. Plan: Date: Initial Weight: 147.077 kg Initial BMI: Current Weight: Current BMI: Type of Surgery: Total Volume in Band: Previous Volume: Volume Removed: Volume Added: Band Size:
[2019-03-16 17:21] VITALS: BP 125/81; PULSE 59; TEMP 98.2; BMI 39.9
== END ==
LOC: BARWHC3 14:55
PROVIDERS: ATTEND Surgery
DX: E66.01 Morbid (severe) obesity due to excess calories (principal); Z98.84 Bariatric surgery status; Z79.899 Other long term (current) drug therapy; Z68.41 Body mass index [BMI] 40.0-44.9, adult
CPT/HCPCS: 99211

== ENCOUNTER → 2019-04-08 | Outpatient (CLI) | payer BC ==
[2019-04-08 15:33] LABS: HCT 40.7 % (39.0-53.0); HGB 13.7 gm/dL (13.0-17.5); MCHC 33.6 g/dL (31.0-37.0); MCV 95.5 fL (80.0-100.0); Mean Platelet Volume 11.3; RBC 4.26 m/uL (4.30-5.90); WBC 3.4 k/uL (3.8-10.6)
[2019-04-08 17:18] LABS: Platelet Count 89 k/uL (150-450)
[2019-04-08 18:44] LABS: ALT 28 U/L (10-49); AST 28 U/L (14-35); African American GFR (CKD) 114.9 (60.0-200.0); Alkaline Phosphatase 93 U/L (41-126); BUN/Creat Ratio 26.25 Ratio (12.00-20.00); Calcium 10.2 mg/dL (8.7-10.3); Carbon Dioxide 30.3 mmol/L (21.6-31.8); Chloride 105 mmol/L (96-109); Globulin 1.5 g/dL (1.6-3.3); Glucose 83 mg/dL (70-110); Iron 41 ug/dL (65-175); Non-African American GFR(CKD) 99.2 (60.0-200.0); Potassium 4.4 mmol/L (3.5-5.5); Sodium 144 mmol/L (135-145); Total Bilirubin 1.1 mg/dL (0.3-1.2)
[2019-04-08 18:59] LABS: Folate, Serum >24.0 ng/mL
== END | disposition home or self-care (01) ==
LOC: LABWHC1 14:39
PROVIDERS: ATTEND Surgery
DX: K90.89 Other intestinal malabsorption (principal); E55.9 Vitamin D deficiency, unspecified
CPT/HCPCS: 36415; 80053; 82306; 82607; 82746; 83540; 84425; 85027

== ENCOUNTER → 2019-04-13 | Outpatient (CLI) | payer BC ==
[2019-04-13 15:16] VITALS: BP 124/72; PULSE 23; TEMP 97.7; BMI 36.6
--- NOTE | 2019-04-13 21:14 | P.BASOAP ---
Subjective Progress Note Date: 04/13/19 Principal diagnosis: Morbid obesity Patient returns for evaluation. Surgery on 03/16. Doing well. 17 pound weight loss since last visit. He is Robinson lost 8100 pounds since surgery. Still on any antacids. Was seen by oncology with no concerns. Iron slightly low at 41. Objective - Vital Signs Vital signs: Vital Signs Temp 97.7 F 04/13/19 15:15 Pulse 23 L 04/13/19 15:15 Resp BP 124/72 04/13/19 15:15 Pulse Ox Intake & Output 04/13/19 04/13/19 04/14/19 06:59 18:59 06:59 Weight 109.316 kg - Exam Abdomen: Soft, nontender, nondistended Assessment/Plan (1) Morbid obesity Narrative/Plan: Patient doing well at this time. Continue dietary and she says regimen. Patient has increased his iron intake. Follow-up 4-6 weeks. Plan: Date: 04/13/19 Initial Weight: 147.077 kg Initial BMI: 49.3 Current Weight: 109.316 kg Current BMI: 36.6 Type of Surgery: Total Volume in Band: Previous Volume: Volume Removed: Volume Added: Band Size:
== END | disposition home or self-care (01) ==
LOC: BARWHC3 14:56
PROVIDERS: ATTEND Surgery
DX: E66.01 Morbid (severe) obesity due to excess calories (principal); Z68.36 Body mass index [BMI] 36.0-36.9, adult
CPT/HCPCS: 97803; 99211

== ENCOUNTER → 2019-06-01 | Outpatient (CLI) | payer BC ==
[2019-06-01 15:32] VITALS: BP 124/72; PULSE 52; TEMP 98.2; BMI 34.2
--- NOTE | 2019-06-01 16:13 | P.BASOAP ---
Subjective Progress Note Date: 06/01/19 Principal diagnosis: Morbid obesity Patient doing well today. Here for routine follow-up. He has lost 21 pounds since his last visit. Improving energy. No reflux. 1 episode of vomiting after eating brussels sprouts that were not cooked thoroughly. Objective - Vital Signs Vital signs: Vital Signs Temp 98.2 F 06/01/19 15:30 Pulse 52 L 06/01/19 15:30 Resp BP 124/72 06/01/19 15:30 Pulse Ox Intake & Output 05/31/19 06/01/19 06/01/19 18:59 06:59 18:59 Weight 102.058 kg - Exam Abdomen: Soft, nontender, nondistended Assessment/Plan (1) Morbid obesity Narrative/Plan: Patient doing well this time. Continue dietary and exercise regimen. Continue antiacids. Recheck 6 weeks. Check 6 months. Plan: Date: 06/01/19 Initial Weight: 147.077 kg Initial BMI: 49.3 Current Weight: 102.058 kg Current BMI: 34.2 Type of Surgery: Total Volume in Band: Previous Volume: Volume Removed: Volume Added: Band Size:
== END | disposition home or self-care (01) ==
LOC: BARWHC3 14:53
PROVIDERS: ATTEND Surgery
DX: E66.01 Morbid (severe) obesity due to excess calories (principal); Z68.34 Body mass index [BMI] 34.0-34.9, adult; R11.10 Vomiting, unspecified
CPT/HCPCS: 99211

== ENCOUNTER 2019-12-15 01:31 | Emergency (ER) | payer BC ==
[2019-12-15 01:38] VITALS: RESP 18
[2019-12-15] MEDS ORDERED: ONDANSETRON 4 MG/2 ML VIAL IVP STA (02:01)
[2019-12-15] MEDS ORDERED: HYDROmorphone 0.5 MG/0.5 ML SYRINGE IVP STA (02:01)
--- NOTE | 2019-12-15 02:03 | ED ---
Abdominal Pain HPI - General Chief Complaint: Abdominal Pain Stated Complaint: ABD PAIN Time Seen by Provider: 12/15/19 01:44 Source: patient Mode of arrival: ambulatory Limitations: no limitations - History of Present Illness MD Complaint: flank pain Onset/Timin -: hour(s) Location: R flank Radiation: RLQ Migration to: no migration Severity: severe Quality: sharp Consistency: constant Improves With: nothing Worsens With: nothing Associated Symptoms: nausea, vomiting - Related Data Home Medications Medication Instructions Recorded Confirmed Atorvastatin [Lipitor] 40 mg PO HS 03/17/14 06/01/19 Meloxicam [Mobic] 7.5 mg PO BID 03/17/14 06/01/19 Metoprolol Tartrate [Lopressor] 12.5 mg PO BID 03/17/14 06/01/19 Niacin [Niacin ER] 500 mg PO HS 03/17/14 06/01/19 amLODIPine [Norvasc] 5 mg PO QAM 03/17/14 06/01/19 lisinopriL [Zestril] 20 mg PO BID 03/17/14 06/01/19 Fluticasone Nasal [place] [Flonase 2 spr EA NOSTRIL DAILY 11/02/18 06/01/19 Nasal [place]] Loratadine [Claritin] 10 mg PO DAILY 11/02/18 06/01/19 Previous Rx's Medication Instructions Recorded Omeprazole 40 mg PO DAILY #30 cap 01/20/19 Hydrocodone/Acetaminophen [[place] 1 each PO Q6HR PRN #20 tab 12/15/19 5-325] Ondansetron Odt [Zofran ODT] 4 mg PO Q8HR PRN #10 tab 12/15/19 Tamsulosin [Flomax] 0.4 mg PO DAILY #14 cap 12/15/19 Allergies Allergy/AdvReac Type Severity Reaction Status Date / Time No Known Allergies Allergy Verified 12/15/19 01:38 Review of Systems ROS Statement: Those systems with pertinent positive or pertinent negative responses have been documented in the HPI. ROS Other: All systems not noted in ROS Statement are negative. Constitutional: Denies: fever, chills Respiratory: Denies: cough, dyspnea Cardiovascular: Denies: chest pain, palpitations Gastrointestinal: Reports: abdominal pain, nausea, vomiting. Denies: diarrhea, constipation, hematemesis, melena, hematochezia Genitourinary: Denies: dysuria, frequency, hematuria, testicular mass Musculoskeletal: Denies: back pain Skin: Denies: rash Neurological: Denies: headache, weakness, numbness Past Medical History Past Medical History: Coronary Artery Disease (CAD), Chest Pain / Angina, H yperlipidemia, Hypertension, Myocardial Infarction (AR), Osteoarthritis (OA) Additional Past Medical History / Comment(s): OA in bilateral knees. Last Myocardial Infarction Date:: 06/2009 History of Any Multi-Drug Resistant Organisms: None Reported Past Surgical History: Bariatric Surgery, Coronary Bypass/CABG Additional Past Surgical History / Comment(s): 2009 cardiac cath and emergent CABG X2 vessels, colonoscopy sleeve gastrectomy 01-18-19 Past Anesthesia/Blood Transfusion Reactions: No Reported Reaction Additional Past Anesthesia/Blood Transfusion Reaction / Comment(s): no hx blood transfusion Past Psychological History: No Psychological Hx Reported Smoking Status: Never smoker Past Alcohol Use History: Rare Past Drug Use History: None Reported - Past Family History Father Family Medical History: Coronary Artery Disease (CAD) Additional Family Medical History / Comment(s): Father at age 78 yrs from CAD. Mother Family Medical History: Congestive Heart Failure (CHF), Coronary Artery Disease (CAD), Diabetes Mellitus Additional Family Medical History / Comment(s): Mother at age 70 yrs of CAD/CHF General Exam Limitations: no limitations General appearance: alert, in no apparent distress Head exam: Present: atraumatic, normocephalic Eye exam: Present: normal appearance. Absent: scleral icterus, conjunctival injection ENT exam: Present: normal oropharynx Neck exam: Present: normal inspection Respiratory exam: Present: normal lung sounds bilaterally. Absent: respiratory distress, wheezes, rales, rhonchi, stridor Cardiovascular Exam: Present: regular rate, normal rhythm, normal heart sounds. Absent: systolic murmur, diastolic murmur, rubs, gallop GI/Abdominal exam: Present: soft. Absent: distended, tenderness, guarding, rebound, rigid, mass Extremities exam: Present: normal inspection, normal capillary refill. Absent: pedal edema, calf tenderness Back exam: Present: normal inspection. Absent: CVA tenderness (R), CVA tenderness (L) Neurological exam: Present: alert Skin exam: Present: warm, dry, intact, normal color. Absent: rash Course Vital Signs 12/15/19 01:36 Temperature 98.7 F Pulse Rate 62 Respiratory 18 Rate Blood Pressure 142/82 O2 Sat by Pulse 100 Oximetry Medical Decision Making - Lab Data Result diagrams: 12/15/19 02:16 12/15/19 02:16 Lab Results 12/15/19 12/15/19 12/15/19 Range/Units 02:16 02:16 03:19 WBC 8.9 (3.8-10.6) k/uL RBC 4.74 (4.30-5.90) m/uL Hgb 14.7 (13.0-17.5) gm/dL Hct 45.4 (39.0-53.0) % MCV 95.6 (80.0-100.0) fL MCH 31.1 (25.0-35.0) pg MCHC 32.5 (31.0-37.0) g/dL RDW 13.2 (11.5-15.5) % Plt Count 95 L (150-450) k/uL Neutrophils % 87 % Lymphocytes % 6 % Monocytes % 5 % Eosinophils % 1 % Basophils % 0 % Neutrophils # 7.7 (1.3-7.7) k/uL Lymphocytes # 0.5 L (1.0-4.8) k/uL Monocytes # 0.5 (0-1.0) k/uL Eosinophils # 0.1 (0-0.7) k/uL Basophils # 0.0 (0-0.2) k/uL Manual Slide Review Performed Large Platelets Present Sodium 138 (137-145) mmol/L Potassium 3.9 (3.5-5.1) mmol/L Chloride 107 (98-107) mmol/L Carbon Dioxide 24 (22-30) mmol/L Anion Gap 7 mmol/L BUN 26 H (9-20) mg/dL Creatinine 0.86 (0.66-1.25) mg/dL Est GFR (CKD-EPI)AfAm >90 (>60 ml/min/1.73 sqM) Est GFR (CKD-EPI)NonAf >90 (>60 ml/min/1.73 sqM) Glucose 108 H (74-99) mg/dL Calcium 9.3 (8.4-10.2) mg/dL Total Bilirubin 1.1 (0.2-1.3) mg/dL AST 37 (17-59) U/L ALT 16 (4-49) U/L Alkaline Phosphatase 60 (38-126) U/L Total Protein 6.2 L (6.3-8.2) g/dL Albumin 4.2 (3.5-5.0) g/dL Amylase 39 (30-110) U/L Lipase 131 (23-300) U/L Urine Color Yellow Urine Appearance Clear (Clear) Urine pH 5.5 (5.0-8.0) Ur Specific [place] 1.017 (1.001-1.035) Urine Protein Negative (Negative) Urine Glucose (UA) Negative (Negative) Urine Ketones Negative (Negative) Urine Blood Small H (Negative) Urine Nitrite Negative (Negative) Urine Bilirubin Negative (Negative) Urine Urobilinogen <2.0 (<2.0) mg/dL Ur Leukocyte Esterase Negative (Negative) Urine RBC 15 H (0-5) /hpf Urine WBC 1 (0-5) /hpf Hyaline Casts 1 (0-2) /lpf Urine Mucus Rare H (None) /hpf Disposition Clinical Impression: Calculus of kidney Disposition: HOME SELF-CARE Condition: Good Instructions (If sedation given, give patient instructions): Kidney Stones (ED) Prescriptions: Tamsulosin [Flomax] 0.4 mg PO DAILY #14 cap Hydrocodone/Acetaminophen [[place] 5-325] 1 each PO Q6HR PRN #20 tab PRN Reason: Pain Ondansetron Odt [Zofran ODT] 4 mg PO Q8HR PRN #10 tab PRN Reason: Nausea Is patient prescribed a controlled substance at d/c from ED?: No Referrals: Deangelo Xiong DO [Primary Care Provider] - 1-2 days Bob Gurrola MD [STAFF PHYSICIAN] - 1-2 days
[2019-12-15 02:37] LABS: Basophils % (A) 0 %; Eosinophils # (A) 0.1 k/uL (0-0.7); Eosinophils % (A) 1 %; HCT 45.4 % (39.0-53.0); HGB 14.7 gm/dL (13.0-17.5); Lymphocytes # (A) 0.5 k/uL (1.0-4.8); Lymphocytes % (A) 6 %; MCH 31.1 pg (25.0-35.0); MCHC 32.5 g/dL (31.0-37.0); MCV 95.6 fL (80.0-100.0); Mean Platelet Volume 9.6; Monocytes # (A) 0.5 k/uL (0-1.0); Monocytes % (A) 5 %; Neutrophils # (A) 7.7 k/uL (1.3-7.7); Neutrophils % (A) 87 %; RBC 4.74 m/uL (4.30-5.90); RDW 13.2 % (11.5-15.5); WBC 8.9 k/uL (3.8-10.6)
[2019-12-15 02:39] LABS: ALT 16 U/L (4-49); AST 37 U/L (17-59); African American GFR (CKD) >90 (>60 ml/min/1.73 sqM); Albumin 4.2 g/dL (3.5-5.0); Alkaline Phosphatase 60 U/L (38-126); Amylase 39 U/L (30-110); Anion Gap 7 mmol/L; Blood Urea Nitrogen 26 mg/dL (9-20); Calcium 9.3 mg/dL (8.4-10.2); Carbon Dioxide 24 mmol/L (22-30); Chloride 107 mmol/L (98-107); Glucose 108 mg/dL (74-99); Non-African American GFR(CKD) >90 (>60 ml/min/1.73 sqM); Potassium 3.9 mmol/L (3.5-5.1); Sodium 138 mmol/L (137-145); Total Bilirubin 1.1 mg/dL (0.2-1.3); Total Protein 6.2 g/dL (6.3-8.2)
[2019-12-15 03:19] LABS: Large Platelets Present
[2019-12-15 03:20] LABS: Platelet Count 95 k/uL (150-450)
[2019-12-15 03:37] LABS: Appearance,Urine Clear (Clear); Bilirubin,Urine Negative (Negative); Blood,Urine Small (Negative); Color,Urine Yellow; Glucose,Urine (UA) Negative (Negative); Hyaline Casts,Urine 1 /lpf (0-2); Ketones,Urine Negative (Negative); Leukocyte Esterase,Urine Negative (Negative); Mucus,Urine Rare /hpf; Nitrite,Urine Negative (Negative); PH, Urine 5.5 (5.0-8.0); Protein,Urine Negative (Negative); RBC,Urine 15 /hpf (0-5); Specific Gravity,Urine 1.017 (1.001-1.035); Urobilinogen,Urine <2.0 mg/dL (<2.0); WBC,Urine 1 /hpf (0-5)
--- NOTE | 2019-12-15 03:37 | CT ---
EXAMINATION TYPE: CT abdomen pelvis wo con DATE OF EXAM: 12/15/2019 COMPARISON: None HISTORY: Right flank pain. CT DLP: 669.1 mGycm Automated exposure control for dose reduction was used. Exam performed without contrast from the diaphragm to the floor the pelvis. Lung bases are clear. There is no pleural effusion. There is surgical clips apparently from gastric b ariatric surgery. Gallbladder appears normal. There is no focal liver defect. Spleen is intact. There is no evidence of pancreatic mass. There is no adrenal mass. There are bilateral cortical cysts and measuring 3.5 cm on the posterior ri ght kidney and 2 cm upper pole left kidney. There is right-sided hydronephrosis and perinephric edema . There is right side mild periureteral edema. There is a 3 mm calculus in the urinary bladder on the right side that is probably at the ureteral vesicle junction. There is no inguinal hernia. The remai nder of the bladder appears normal. There is no mesenteric edema. There is no ascites or free air. There is no bowel obstruction. There i s 1 mm calculus lower pole right kidney. I see no definite left-sided ureteral calculus. Lumbar vertebra have normal alignment. There is disc space narrowing at L3-4 L4-5 with spur formation . There is no compression fracture. The bony pelvis is intact. IMPRESSION: Obstructing small calculus at the right ureterovesical junction with right-sided hydronephrosis and h ydroureter and perinephric edema. Tiny right renal calculus.
[2019-12-15] MEDS ORDERED: TAMSULOSIN 0.4 MG CAP.ER.24H PO STA (04:14)
[2019-12-15 08:08] VITALS: BP 136/88; PULSE 65; TEMP 98.5
== END 2019-12-15 04:44 | disposition home or self-care (01) ==
LOC: EC 01:31
DX: N13.2 Hydronephrosis with renal and ureteral calculous obstruction (principal); I25.119 Atherosclerotic heart disease of native coronary artery with unspecified angina pectoris; I25.2 Old myocardial infarction; E78.5 Hyperlipidemia, unspecified; I10 Essential (primary) hypertension; Z79.1 Long term (current) use of non-steroidal anti-inflammatories (NSAID); Z79.899 Other long term (current) drug therapy; Z79.51 Long term (current) use of inhaled steroids; Z98.84 Bariatric surgery status; Z95.1 Presence of aortocoronary bypass graft
CPT/HCPCS: 36415; 80053; 82150; 83690; 85025; 81001; 74176; 99284; 96374; 96375; J2405; J1170

== ENCOUNTER → 2021-05-29 | Outpatient (CLI) | payer BC ==
--- NOTE | 2021-05-29 22:19 | XR ---
EXAMINATION TYPE: XR chest 2V DATE OF EXAM: 05/29/2021 COMPARISON: None HISTORY: 60-year-old male [id number] SOB, HAZ EXP TECHNIQUE: Frontal and lateral views FINDINGS: Median sternotomy wires are present with post-CABG clips in the mediastinum. Heart normal size. Aorta and pulmonary vasculature within normal limits. Small metallic foreign body projects along the super ficial soft tissues of the left anterior mid chest. Mild interstitial prominence has a chronic appear ance. No consolidation or pleural effusion. [facility] in the mid and lower thoracic spine. IMPRESSION: 1. Post-CABG changes. No acute cardiopulmonary process. 2. Tiny 2.5 mm metallic density projecting at the superficial soft tissues of the anterior left mid c hest. Correlate for external artifact or retained foreign body.
== END | disposition home or self-care (01) ==
LOC: RADXRYALE 16:58
PROVIDERS: ATTEND Family Medicine
DX: R91.8 Other nonspecific abnormal finding of lung field (principal); Z95.1 Presence of aortocoronary bypass graft; Z77.9 Other contact with and (suspected) exposures hazardous to health
CPT/HCPCS: 71046

== ENCOUNTER 2022-03-19 11:46 | Day surgery (SDC) | payer BC ==
[2022-03-15 15:24] VITALS: BMI 29.5
[~2022-03-19 11:46] MED LIST changes: -DEXAMETHASONE SOD PHOSPHATE 10 MG/ML 1 ML VIAL IV ONE; -ENOXAPARIN 40 MG/0.4 ML SYRINGE SQ ONE; +LACTATED RINGERS 1,000 ML IV SCH; +LIDOCAINE 1% (10MG/ML) FOR IV START INTRADERMA PRN; -LIDOCAINE 1% 20 ML VIAL (10MG/ML) FOR IV START INTRADERMA PRN; -MIDAZOLAM 2 MG/2 ML VIAL IV PRN; -ceFAZolin 3 GM in SODIUM CHLORIDE 0.9% 100 ML IVPB ONE
[2022-03-19 12:14] VITALS: RESP 15; TEMP 97
[2022-03-19] MEDS ORDERED: LIDOCAINE 2% INJ 20 MG/ML (2 ML VIAL) ONE (14:02)
[2022-03-19] MEDS ORDERED: PROPOFOL 10 MG/ML 20 ML VIAL IV ONE (14:02)
--- NOTE | 2022-03-19 14:24 | P.PCN ---
Date of Procedure: 03/19/22 Procedure(s) Performed: BRIEF HISTORY: Patient is a 61-year-old pleasant white male scheduled for an elective colonoscopy as a part of screening for colon cancer. PROCEDURE PERFORMED: Colonoscopy with snare polypectomy. PREOPERATIVE DIAGNOSIS: Screening for colon cancer. IV sedation per Anesthesia. PROCEDURE: After informed consent was obtained, the patient, was brought into the endoscopy unit. IV sedation was administered by Anesthesia under continuous monitoring. Digital rectal examination was normal. Initially the Olympus CF-160 flexible video colonoscope was then inserted in the rectum, gradually advanced into the cecum without any difficulty. Careful examination was performed as the scope was gradually being withdrawn. Ileocecal valve and the appendiceal orifice were visualized and appeared normal. Prep was excellent. Mucosa of the cecum, ascending colon appeared normal. In the transverse colon there was a 1 cm polyp removed by snare polypectomy. Rest of the, transverse colon, descending colon, sigmoid colon, and rectum appeared normal. Retroflexion was performed in the rectum and no lesions were seen. The patient tolerated the procedure well. IMPRESSION: 1 cm transverse colon polyp status post polypectomy Rest of the colon appeared normal RECOMMENDATIONS: Findings of this examination were discussed with the patient as well as his family. He was advised to follow with the biopsy results. If the biopsy reveals adenoma he can have a repeat colonoscopy in 3 years..
[2022-03-19 14:46] VITALS: BP 113/76; PULSE 68
== END 2022-03-19 14:58 | disposition home or self-care (01) ==
LOC: ORWHC2ENDO 11:46
PROVIDERS: ATTEND Internal Medicine Gastroenterology
DX: Z12.11 Encounter for screening for malignant neoplasm of colon (principal); K63.5 Polyp of colon; I25.10 Atherosclerotic heart disease of native coronary artery without angina pectoris; I10 Essential (primary) hypertension; E78.5 Hyperlipidemia, unspecified; M19.90 Unspecified osteoarthritis, unspecified site
CPT/HCPCS: 45385; J2704; J2001; 88305